=== PATIENT | male | born 1950 | race Caucasian/White ===

== ENCOUNTER 2019-03-11 08:11 | Day surgery (SDC) | payer MEDICARE, OTHER ==
[~2019-03-11 08:11] MED LIST: Lactated Ringers 1,000 ML IV SCH; Lidocaine 1%/Sod Bicarbonate in NS 8.4% 1 ML Syringe IDERM PRN; Sodium Chloride 0.9% 10 ML Syringe FLUSH PRN
[2019-03-11] MEDS ORDERED: Propofol 200 MG/20 ML SDV ONE ×2 (08:42→09:13)
--- NOTE | 2019-03-11 09:02 | PCM.PREANE ---
Preanesthetic Assessment - Anesthesia/Transfusion/Family Hx Anesthesia History: Prior Anesthesia Reaction Family History of Anesthesia Reaction: No Transfusion History: No Prior Transfusion(s) Intubation History: History of Difficulty Intubation - Review of Systems General: No Symptoms Pulmonary: No Symptoms Cardiovascular: No Symptoms Gastrointestinal: No Symptoms Neurological: No Symptoms Other: Reports: None - Physical Assessment NPO Status Date: 03/11/19 NPO Status Time: 04:00 O2 Sat by Pulse Oximetry: 98 Respiratory Rate: 16 Vital Signs: Last Vital Signs Temp 36.4 C 03/11/19 08:25 Pulse 58 L 03/11/19 08:25 Resp 16 03/11/19 08:25 BP 174/79 H 03/11/19 08:25 Pulse Ox 98 03/11/19 08:25 Height: 1.78 m Weight: 119.295 kg ASA Class: 3 Mental Status: Alert & Oriented x3 Airway Class: Mallampati = 3 Dentition: Reports: Normal Dentition Lungs: Clear to Auscultation Cardiovascular: Regular Rate, Regular Rhythm - Allergies Allergies/Adverse Reactions: Allergies Allergy/AdvReac Type Severity Reaction Status Date / Time No Known Allergies Allergy Verified 03/10/19 12:50 - Acknowledgements Pt an Appropriate Candidate for the Planned Anesthesia: Yes Alternatives and Risks of Anesthesia Discussed w Pt/Guardian: Yes Pt/Guardian Understands and Agrees with Anesthesia Plan: Yes PreAnesthesia Questionnaire HEENT History: Reports: Impaired Vision Cardiovascular History: Reports: High Cholesterol, Hypertension Respiratory History: Reports: None Gastrointestinal History: Reports: None Genitourinary History: Reports: Prostate Disorder 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 Musculoskeletal History: Reports: Gout Psychiatric History: Reports: None Endocrine/Metabolic History: Reports: None Hematologic History: Reports: None Immunologic History: Reports: None Oncologic (Cancer) History: Reports: None Dermatologic History: Reports: None - Past Surgical History Head Surgeries/Procedures: Reports: None Cardiovascular Surgical History: Reports: None Respiratory Surgical History: Reports: None GI Surgical History: Reports: None Female Surgical History: Reports: None Male Surgical History: Reports: None Endocrine Surgical History: Reports: None Neurological Surgical History: Reports: C-Spine Musculoskeletal Surgical History: Reports: None Oncologic Surgical History: Reports: None - SUBSTANCE USE Smoking Status *Q: Never Smoker Recreational Drug Use History: No - HOME MEDS Home Medications: Home Meds Glucosamine [Glucosamine Sulfate] 500 mg PO DAILY 05/21/19 [History] Lisinopril/Hydrochlorothiazide [Lisinopril-Hctz 10-12.5 mg Tab] 1 tab PO DAILY 03/10/19 [History] Niacin 500 mg PO DAILY 03/10/19 [History] Oxybutynin Chloride [Ditropan Xl] 10 mg PO DAILY 03/10/19 [History] Tamsulosin HCl 0.4 mg PO DAILY 03/10/19 [History] - CURRENT (IN HOUSE) MEDS Current Meds: Current Medications Lactated Ringer's (Ringers, Lactated) 1,000 mls @ 125 mls/hr IV ASDIRECTED DUNIA Stop: 03/11/19 23:00 Last Admin: 03/11/19 08:35 Dose: 125 mls/hr Lidocaine/Sodium Bicarbonate (Buffered Lidocaine 1% In Ns 8.4%) 0.25 ml IDERM ONETIME PRN PRN Reason: Prior to IV Start Stop: 03/11/19 18:00 Last Admin: 03/11/19 08:34 Dose: 0.25 ml Sodium Chloride (Saline Flush) 10 ml FLUSH ASDIRECTED PRN PRN Reason: Keep Vein Open Stop: 03/11/19 18:00 Discontinued Medications Propofol (Diprivan 20 Ml) Confirm Administered Dose 200 mg .ROUTE .STK-MED ONE Stop: 03/11/19 08:43
--- NOTE | 2019-03-11 09:29 | PCM48HPAN ---
Post Anesthesia Note - EVALUATION WITHIN 48HRS OF ANESTHETIC Vital Signs in Normal Range: Yes Patient Participated in Evaluation: Yes Respiratory Function Stable: Yes Airway Patent: Yes Cardiovascular Function Stable: Yes Hydration Status Stable: Yes Pain Control Satisfactory: Yes Nausea and Vomiting Control Satisfactory: Yes Mental Status Recovered: Yes Resp Rate: 16
--- NOTE | 2019-03-11 09:29 | PCM.POSTAN ---
POST ANESTHESIA ASSESSMENT - MENTAL STATUS Mental Status: Alert - RESPIRATORY Respiratory Status: Respiratory Rate WNL, Airway Patent, O2 Saturation Stable - CARDIOVASCULAR CV Status: Pulse Rate WNL, Blood Pressure Stable - GASTROINTESTINAL GI Status: No Symptoms - POST OP HYDRATION Hydration Status: Adequate & Stable
--- NOTE | 2019-03-11 14:42 | OR ---
DATE OF OPERATION: 03/11/2019 SURGEON: Ed Jimenez MD PREOPERATIVE DIAGNOSIS: Colorectal cancer screening. POSTOPERATIVE DIAGNOSIS: 1. Colorectal cancer screening. 2. Colon polyps. OPERATION PERFORMED: Screening colonoscopy and polypectomy x2. FINDINGS: He had an excellent bowel prep. I identified 2 what appeared to be hyperplastic polyps in the descending colon. These were removed in their entirety. The remainder of his exam was completely unremarkable. I found no diverticulosis. ANESTHESIA: Monitored anesthesia care. ESTIMATED BLOOD LOSS: Minimal. PATHOLOGY: Descending colon polyps x2. DISPOSITION: Stable at the end of the procedure. INDICATION: The patient is a 68-year-old male, who has never had a colonoscopy. He was referred for screening colonoscopy. He has no family history of colon cancer, but his mother did have some polyps removed. He was fully informed of the major risks, benefits, and alternatives of the procedure. He gave informed consent both on the day of the procedure and on the day of my office. DESCRIPTION OF PROCEDURE: The patient was placed in the left lateral decubitus position. He was given monitored anesthesia. Digital rectal exam was performed. This was unremarkable. I introduced the colonoscope with copious lubrication into the rectum. I advanced the scope with gentle forward pressure keeping the lumen in view at all times. I encountered the cecum. The cecum was documented photographically. I slowly investigated the mucosa of the colon in an exam lasting 8 minutes. A thorough careful examination of the mucosa in its entirety identified 2 polyps in the descending colon. Both of these were removed in their entirety with the biopsy forceps with essentially no bleeding. At the end of the procedure, the scope was withdrawn. He was awakened from anesthesia and moved to the recovery in stable condition. PLAN: He will need a colonoscopy in 10 years; however, if these polyps result adenomatous in character, 5-year followup will be warranted. My office will notify him. MMODAL /[id number]
== END 2019-03-11 10:10 | disposition home or self-care (01) ==
LOC: JD.SDS 08:11
PROVIDERS: ATTEND Surgery
DX: Z12.11 Encounter for screening for malignant neoplasm of colon (principal); D12.4 Benign neoplasm of descending colon; I10 Essential (primary) hypertension; N42.9 Disorder of prostate, unspecified; Z83.71 Family history of colonic polyps; Z79.899 Other long term (current) drug therapy
CPT/HCPCS: 00812; J2704; J7120

== ENCOUNTER 2021-08-28 08:33 | Emergency (ER) | payer MEDICARE, OTHER ==
[2021-08-28] MEDS ORDERED: Sodium Chloride 0.9% 10 ML Syringe FLUSH PRN ×2 (09:13→13:33)
[2021-08-28] MEDS: Diltiazem 50 MG/10 ML SDV IVPUSH ONE ×2 (09:23→09:57)
--- NOTE | 2021-08-28 09:26 | EDM.PDOC ---
ED HPI GENERAL MEDICAL PROBLEM - General Chief Complaint: Cardiovascular Problem Stated Complaint: SOB BLOOD PRESSURE Time Seen by Provider: 08/28/21 08:59 Source of Information: Reports: Patient History Limitations: Reports: No Limitations - History of Present Illness INITIAL COMMENTS - FREE TEXT/NARRATIVE: 71-year-old male presents the emergency department today with complaints of increased shortness of breath and heart palpitations. Patient states he initially noticed this 7 days ago and has progressively gotten worse. He states that shortness of breath became more significant 3 days ago. He denies any history of breathing issues or atrial fibrillation. He denies any chest pain or discomfort. He states he does have a history of hypertension and does take oral agents for diabetes. He states he did have all 3 Covid vaccines with his last booster being given approximately 8 days ago. - Related Data Allergies Allergy/AdvReac Type Severity Reaction Status Date / Time No Known Allergies Allergy Verified 08/28/21 09:04 Home Meds: Home Meds Lisinopril/Hydrochlorothiazide [Lisinopril-Hctz 10-12.5 mg Tab] 10 - 12.5 mg PO DAILY 03/10/19 [History] Niacin 500 mg PO DAILY 03/10/19 [History] Tamsulosin HCl 0.4 mg PO DAILY 03/10/19 [History] metFORMIN HCl [Metformin HCl] 1,000 mg PO BID 08/28/21 [History] Past Medical History HEENT History: Reports: Impaired Vision Other HEENT History: wears eyeglasses. 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 Social & Family History - Tobacco Use Tobacco Use Status *Q: Never Tobacco User Second Hand Smoke Exposure: No - Caffeine Use Caffeine Use: Reports: Coffee - Recreational Drug Use Recreational Drug Use: No ED ROS GENERAL - Review of Systems Review Of Systems: Comprehensive ROS is negative, except as noted in HPI. ED EXAM, GENERAL - Physical Exam Exam: See Below Exam Limited By: No Limitations General Appearance: Alert, WD/WN, Mild Distress Ears: Normal External Exam, Hearing Grossly Normal Nose: Normal Inspection Throat/Mouth: Normal Inspection, Normal Lips, Normal Voice, No Airway Compromise Head: Atraumatic Neck: Normal Inspection, Supple Respiratory/Chest: No Respiratory Distress, Lungs Clear, Normal Breath Sounds, No Accessory Muscle Use, Chest Non-Tender Cardiovascular: Normal Peripheral Pulses, Regular Rate, Rhythm, No Edema, No Murmur Peripheral Pulses: 2+: Radial (L), Radial (R) GI/Abdominal: Normal Bowel Sounds, Soft, Non-Tender, No Distention (Male) Exam: Deferred Rectal (Males) Exam: Deferred Back Exam: Normal Inspection Extremities: Normal Inspection, Normal Range of Motion, Non-Tender, Normal Capillary Refill, Pedal Edema (Trace to bilateral lower extremities) Neurological: Alert, Oriented, Normal Cognition Psychiatric: Normal Affect, Normal Mood Skin Exam: Warm, Dry, Intact, Normal Color, No Rash Lymphatic: No Adenopathy #1 Interpretation EKG Date: 08/28/21 Time: 08:53 Rhythm: A-Fib Rate (Beats/Min): 162 Cylinder: Normal P-Wave: Absent QRS: Normal ST-T: Normal QT: Normal Comparison: NA - No Prior EKG EKG Interpretation Comments: Per Dr. Vivas interpretation; atrial fib with rapid ventricular rate at 162 bpm; abnormal R wave progression, late transition; inferior infarct, old Course - Vital Signs Text/Narrative:: As stated above, patient presents with shortness of breath and heart palpitations. Physical exam reveals that the patient's heart rate is in the 140s A. fib with RVR. Heart rate is regular. I do not appreciate any murmur. Lung sounds are clear. He does have a trace of pedal edema to his bilateral lower extremities. He denies noticing any increasing swelling in his abdomen or lower extremities. He denies having any chest pain or discomfort. I have ordered an EKG, lab studies to include a CBC, CMP, magnesium, C-reactive protein, troponin, proBNP and a TSH level. We will also obtain a portable chest x-ray. Patient will receive Cardizem 10 mg to be repeated 10 minutes later x1. Then likely start the patient on a Cardizem drip. Last Recorded V/S: Last Vital Signs Temp 99.2 F 08/28/21 15:31 Pulse 150 H 08/28/21 15:31 Resp 32 H 08/28/21 15:31 BP 172/134 H 08/28/21 15:31 Pulse Ox 95 08/28/21 15:31 - Orders/Labs/Meds Orders: Active Orders 24 hr Category Date Time Status Saline Lock Insert [OM.PC] Stat Oth 08/28/21 09:13 Ordered Labs: Laboratory Tests 08/28/21 08/28/21 08/28/21 Range/Units 09:00 09:35 09:35 WBC 7.94 (4.23-9.07) K/mm3 RBC 5.58 (4.63-6.08) M/mm3 Hgb 16.8 (13.7-17.5) gm/dl Hct 49.8 (40.1-51.0) % MCV 89.2 (79.0-92.2) fl MCH 30.1 (25.7-32.2) pg MCHC 33.7 (32.2-35.5) g/dl RDW Std Deviation 44.8 H (35.1-43.9) fL Plt Count 234 (163-337) K/mm3 MPV 10.3 (9.4-12.3) fl Neut % (Auto) 70.2 H (34.0-67.9) % Lymph % (Auto) 19.5 L (21.8-53.1) % Kerr % (Auto) 8.9 (5.3-12.2) % Eos % (Auto) 0.5 L (0.8-7.0) Baso % (Auto) 0.5 (0.1-1.2) % Neut # (Auto) 5.57 H (1.78-5.38) K/mm3 Lymph # (Auto) 1.55 (1.32-3.57) K/mm3 Kerr # (Auto) 0.71 (0.30-0.82) K/mm3 Eos # (Auto) 0.04 (0.04-0.54) K/mm3 Baso # (Auto) 0.04 (0.01-0.08) K/mm3 D-Dimer, Quantitative (0.19-0.50) mg/L Sodium 140 (136-145) mEq/L Potassium 3.8 (3.5-5.1) mEq/L Chloride 103 (98-107) mEq/L Carbon Dioxide 26 (21-32) mEq/L Anion Gap 14.8 (5-15) BUN 18 (7-18) mg/dL Creatinine 1.1 (0.7-1.3) mg/dL Est Cr Clr Drug Dosing 64.52 mL/min Estimated GFR (MDRD) > 60 (>60) mL/min BUN/Creatinine Ratio 16.4 (14-18) Glucose 158 H (70-99) mg/dL Calcium 9.1 (8.5-10.1) mg/dL Magnesium 1.7 L (1.8-2.4) mg/dL Total Bilirubin 1.0 (0.2-1.0) mg/dL AST 33 (15-37) U/L ALT 47 (16-63) U/L Alkaline Phosphatase 75 (46-116) U/L Troponin I < 0.017 (0.00-0.056) ng/mL C-Reactive Protein 0.5 (<1.0) mg/dL NT-Pro-B Natriuret Pep 2799 H (0-125) pg/mL Total Protein 7.6 (6.4-8.2) g/dl Albumin 3.7 (3.4-5.0) g/dl Globulin 3.9 gm/dL Albumin/Globulin Ratio 1.0 (1-2) TSH 3rd Generation 1.449 (0.358-3.74) uIU/mL Urine Color (Yellow) Urine Appearance (Clear) Urine pH (5.0-8.0) Ur Specific Gaastra (1.005-1.030) Urine Protein (Negative) Urine Glucose (UA) (Negative) Urine Ketones (Negative) Urine Occult Blood (Negative) Urine Nitrite (Negative) Urine Bilirubin (Negative) Urine Urobilinogen (0.2-1.0) Ur Leukocyte Esterase (Negative) Urine RBC (0-5) /hpf Urine WBC (0-5) /hpf Ur Epithelial Cells (0-5) /hpf Urine Bacteria (FEW) /hpf Urine Mucus (FEW) /hpf SARS-CoV-2 RNA (JEISON) (NEGATIVE) 08/28/21 08/28/21 08/28/21 Range/Units 11:15 11:30 13:48 WBC (4.23-9.07) K/mm3 RBC (4.63-6.08) M/mm3 Hgb (13.7-17.5) gm/dl Hct (40.1-51.0) % MCV (79.0-92.2) fl MCH (25.7-32.2) pg MCHC (32.2-35.5) g/dl RDW Std Deviation (35.1-43.9) fL Plt Count (163-337) K/mm3 MPV (9.4-12.3) fl Neut % (Auto) (34.0-67.9) % Lymph % (Auto) (21.8-53.1) % Kerr % (Auto) (5.3-12.2) % Eos % (Auto) (0.8-7.0) Baso % (Auto) (0.1-1.2) % Neut # (Auto) (1.78-5.38) K/mm3 Lymph # (Auto) (1.32-3.57) K/mm3 Kerr # (Auto) (0.30-0.82) K/mm3 Eos # (Auto) (0.04-0.54) K/mm3 Baso # (Auto) (0.01-0.08) K/mm3 D-Dimer, Quantitative 0.49 (0.19-0.50) mg/L Sodium (136-145) mEq/L Potassium (3.5-5.1) mEq/L Chloride (98-107) mEq/L Carbon Dioxide (21-32) mEq/L Anion Gap (5-15) BUN (7-18) mg/dL Creatinine (0.7-1.3) mg/dL Est Cr Clr Drug Dosing mL/min Estimated GFR (MDRD) (>60) mL/min BUN/Creatinine Ratio (14-18) Glucose (70-99) mg/dL Calcium (8.5-10.1) mg/dL Magnesium (1.8-2.4) mg/dL Total Bilirubin (0.2-1.0) mg/dL AST (15-37) U/L ALT (16-63) U/L Alkaline Phosphatase (46-116) U/L Troponin I (0.00-0.056) ng/mL C-Reactive Protein (<1.0) mg/dL NT-Pro-B Natriuret Pep (0-125) pg/mL Total Protein (6.4-8.2) g/dl Albumin (3.4-5.0) g/dl Globulin gm/dL Albumin/Globulin Ratio (1-2) TSH 3rd Generation (0.358-3.74) uIU/mL Urine Color Yellow (Yellow) Urine Appearance Clear (Clear) Urine pH 6.0 (5.0-8.0) Ur Specific Gaastra 1.025 (1.005-1.030) Urine Protein 2+ H (Negative) Urine Glucose (UA) Negative (Negative) Urine Ketones Negative (Negative) Urine Occult Blood Trace-intact H (Negative) Urine Nitrite Negative (Negative) Urine Bilirubin Negative (Negative) Urine Urobilinogen 1.0 (0.2-1.0) Ur Leukocyte Esterase Negative (Negative) Urine RBC 0-5 (0-5) /hpf Urine WBC 0-5 (0-5) /hpf Ur Epithelial Cells 0-5 (0-5) /hpf Urine Bacteria Not seen (FEW) /hpf Urine Mucus Not seen (FEW) /hpf SARS-CoV-2 RNA (JEISON) Negative (NEGATIVE) 08/28/21 Range/Units 13:48 WBC (4.23-9.07) K/mm3 RBC (4.63-6.08) M/mm3 Hgb (13.7-17.5) gm/dl Hct (40.1-51.0) % MCV (79.0-92.2) fl MCH (25.7-32.2) pg MCHC (32.2-35.5) g/dl RDW Std Deviation (35.1-43.9) fL Plt Count (163-337) K/mm3 MPV (9.4-12.3) fl Neut % (Auto) (34.0-67.9) % Lymph % (Auto) (21.8-53.1) % Kerr % (Auto) (5.3-12.2) % Eos % (Auto) (0.8-7.0) Baso % (Auto) (0.1-1.2) % Neut # (Auto) (1.78-5.38) K/mm3 Lymph # (Auto) (1.32-3.57) K/mm3 Kerr # (Auto) (0.30-0.82) K/mm3 Eos # (Auto) (0.04-0.54) K/mm3 Baso # (Auto) (0.01-0.08) K/mm3 D-Dimer, Quantitative (0.19-0.50) mg/L Sodium (136-145) mEq/L Potassium (3.5-5.1) mEq/L Chloride (98-107) mEq/L Carbon Dioxide (21-32) mEq/L Anion Gap (5-15) BUN (7-18) mg/dL Creatinine (0.7-1.3) mg/dL Est Cr Clr Drug Dosing mL/min Estimated GFR (MDRD) (>60) mL/min BUN/Creatinine Ratio (14-18) Glucose (70-99) mg/dL Calcium (8.5-10.1) mg/dL Magnesium (1.8-2.4) mg/dL Total Bilirubin (0.2-1.0) mg/dL AST (15-37) U/L ALT (16-63) U/L Alkaline Phosphatase (46-116) U/L Troponin I < 0.017 (0.00-0.056) ng/mL C-Reactive Protein (<1.0) mg/dL NT-Pro-B Natriuret Pep (0-125) pg/mL Total Protein (6.4-8.2) g/dl Albumin (3.4-5.0) g/dl Globulin gm/dL Albumin/Globulin Ratio (1-2) TSH 3rd Generation (0.358-3.74) uIU/mL Urine Color (Yellow) Urine Appearance (Clear) Urine pH (5.0-8.0) Ur Specific Gaastra (1.005-1.030) Urine Protein (Negative) Urine Glucose (UA) (Negative) Urine Ketones (Negative) Urine Occult Blood (Negative) Urine Nitrite (Negative) Urine Bilirubin (Negative) Urine Urobilinogen (0.2-1.0) Ur Leukocyte Esterase (Negative) Urine RBC (0-5) /hpf Urine WBC (0-5) /hpf Ur Epithelial Cells (0-5) /hpf Urine Bacteria (FEW) /hpf Urine Mucus (FEW) /hpf SARS-CoV-2 RNA (JEISON) (NEGATIVE) Meds: Medications Discontinued Medications Generic Name Dose Route Start Last Admin Trade Name Frebeba PRN Reason Stop Dose Admin Diltiazem HCl 20 mg 08/28/21 09:13 08/28/21 09:57 Diltiazem 50 Mg/10 Ml Sdv IVPUSH 08/28/21 09:14 10 mg ONETIME ONE Administration Enoxaparin Sodium 100 mg 08/28/21 15:04 08/28/21 15:10 Enoxaparin 100 Mg/1 Ml Syringe SUBCUT 08/28/21 15:05 100 mg ONETIME ONE Administration Furosemide 40 mg 08/28/21 10:22 08/28/21 10:50 Furosemide 40 Mg/4 Ml Vial IVPUSH 08/28/21 10:23 40 mg NOW ONE Administration Diltiazem HCl 100 mg/ Sodium 100 mls @ 5 mls/hr 08/28/21 09:45 08/28/21 15:25 Chloride IV 15 mg/hr TITRATE DUNIA 15 mls/hr Titration Protocol 5 MG/HR Sodium Chloride 100 mls @ 75 mls/hr 08/28/21 13:45 08/28/21 14:16 Normal Saline IV 75 mls/hr ASDIRECTED DUNIA Administration Magnesium Sulfate 2 gm/ Premix 50 mls @ 25 mls/hr 08/28/21 14:09 08/28/21 15:04 IV 08/28/21 16:08 25 mls/hr ONETIME ONE Administration Iopamidol 100 ml 08/28/21 13:33 08/28/21 14:16 Iopamidol 755 Mg/Ml 100 Ml Bottle IVPUSH 08/28/21 13:34 100 ml ONETIME ONE Administration Sodium Chloride 10 ml 08/28/21 09:13 08/28/21 09:25 Sodium Chloride 0.9% 10 Ml Syringe FLUSH 10 ml ASDIRECTED PRN Administration Keep Vein Open Sodium Chloride 10 ml 08/28/21 13:33 08/28/21 14:16 Sodium Chloride 0.9% 10 Ml Syringe FLUSH 10 ml ONETIME PRN Administration IV FLUSH - Re-Assessments/Exams Free Text/Narrative Re-Assessment/Exam: 08/28/21 10:05 Radiologist impression portable view of the chest: 1. Heart size is enlarged. Prior cervical spine and upper thoracic spine surgery is noted. Small right pleural effusion with possible left-sided pleural effusion. Pulmonary vessels are mildly congested. Impression: 1. Findings as noted above which are suspicious for CHF. 08/28/21 10:25 Hematology reveals a WBC of 7.94, hemoglobin 16.8, hematocrit 49.8, platelet count 234 Chemistry reveals a sodium of 140, potassium 3.8, carbon dioxide 26, anion gap 14.8, BUN 18, creatinine 1.1, GFR greater than 60, glucose 158, magnesium 1.7, troponin less than 0.017, proBNP 2799, TSH 1.449 Patient does have congestive heart failure likely associated with new onset atrial fibrillation. I have ordered for the patient to receive Lasix 40 mg IV push as well as for nursing staff to start a Cardizem drip on the patient. Patient's heart rate after 20 mg IV Cardizem is upper 90s to one teens. Rhythm continues to be atrial fibrillation. 08/28/21 12:58 She is Covid test is negative. I do feel this patient needs to be admitted to the hospital. We have no beds available here at this hospital. I did like him to call [facility] in [place] in [place] and they have no beds available. I called [facility] in [place] they are on diversion. I called [facility] and received a voice message waiting to hear back from them. 08/28/21 13:32 Discussed the patient's case with Dr. Wan at [facility] in [place]. She is requesting that I repeat the patient's troponin level and get a CT a of the lungs to rule out PE. Once I have these results she requests that I call her back and she will decide whether or not she will take the patient. 08/28/21 14:39 D-dimer 0.49, repeat troponin less than 0.017. 08/28/21 14:[address] of the chest: 1. No findings of pulmonary embolism. 2. Findings as described above are suspicious for CHF. 3. Pericardial effusion is seen. 4. Gallstones are present. 08/28/21 14:46 Repeat troponin and CTA of the lungs results were called to at [facility] in [place]. She has agreed to accept care of the patient in transfer. 08/28/21 15:05 Discussed the case with Dr. Vivas and whether or not I should give the patient a dose of lovenox 1mg/kg as it will likely be at least three hours before the paient gets to [place]. He agrees the patient receive a dose. Departure - Departure Time of Disposition: 15:31 Disposition: DC/Tfer to Critical Access [facility] Reason for Transfer *Q: Other Condition: Good Clinical Impression: Atrial fibrillation with RVR CHF (congestive heart failure) Qualifiers: Heart failure type: unspecified Heart failure chronicity: unspecified Qualified Code(s): I50.9 - Heart failure, unspecified Referrals: Carlos Brown PA-C [Primary Care Provider] - Forms: ED Department Discharge Sepsis Event Note (ED) - Evaluation Sepsis Screening Result: No Definite Risk - My Orders Last 24 Hours: My Active Orders 08/28/21 09:13 Saline Lock Insert [OM.PC] Stat - Assessment/Plan Last 24 Hours: My Active Orders 08/28/21 09:13 Saline Lock Insert [OM.PC] Stat
[2021-08-28] MEDS ORDERED: Diltiazem 100 MG in Sodium Chloride 0.9% 100 ML IV SCH (09:45)
--- NOTE | 2021-08-28 09:58 | CR ---
Chest: Portable view of the chest was obtained. Comparison: No prior chest imaging is available. Heart size is enlarged. Prior cervical spine and upper thoracic spine surgery is noted. Small right-sided pleural effusion with possible left-sided pleural effusion. Pulmonary vessels are mildly congested. Impression: 1. Findings as noted above which are suspicious for CHF. Diagnostic code #3
[2021-08-28] MEDS ORDERED: Furosemide 40 MG/4 ML VIAL IVPUSH ONE (10:22)
[2021-08-28] MEDS ORDERED: Iopamidol 755 Mg/ML 100 ML Bottle IVPUSH ONE (13:33)
[2021-08-28] MEDS ORDERED: Sodium Chloride 0.9% 100 ML IV SCH (13:45)
[2021-08-28] MEDS ORDERED: Magnesium Sulfate/Water 2 GM in Premix Bag 1 BAG IV ONE (14:09)
--- NOTE | 2021-08-28 14:40 | CT ---
CT chest Technique: Multiple axial sections through the chest were obtained. Intravenous contrast was utilized. Study has been performed as a pulmonary angiogram protocol. Comparison: No prior chest CT is available, prior chest x-ray performed earlier on the same day (9:32 AM). Findings: Pulmonary arteries are well-opacified. No filling defects are seen to indicate pulmonary embolism. Bilateral pleural effusions are seen which is larger in size on the right side. Pleural effusions are moderate in size. Heart is enlarged. Pericardial effusion is noted. Gallstones are noted within the gallbladder. Other visualized abdominal structures show nothing acute. Slight haziness is seen within the peribronchial markings most likely due to pulmonary vascular congestion. Minimal compressive atelectasis is seen adjacent to the pleural effusions. Bone window settings were reviewed which show scattered degenerative endplate spurring within the spine. Anterior plate and screws are seen within the distal cervical spine and upper thoracic spine. Impression: 1. No findings of pulmonary embolism. 2. Findings as described above are suspicious for CHF. 3. Pericardial effusion is seen. 4. Gallstones are present. Diagnostic code #3
[2021-08-28] MEDS ORDERED: Enoxaparin 100 MG/1 ML Syringe SUBCUT ONE (15:04)
== END 2021-08-28 15:31 | disposition critical access hospital (66) ==
LOC: JD.ED 08:33
DX: I48.91 Unspecified atrial fibrillation (principal); I11.0 Hypertensive heart disease with heart failure; I50.9 Heart failure, unspecified; E11.9 Type 2 diabetes mellitus without complications; Z79.84 Long term (current) use of oral hypoglycemic drugs; Z79.899 Other long term (current) drug therapy; Z20.822 Contact with and (suspected) exposure to COVID-19
CPT/HCPCS: 36415; 71045; 71275; 80053; 81001; 83735; 83880; 84443; 84484; 85025; 85379; 86140; 93005; 96365; 96366; 96367; 96372; 96375; 96376; 99285; J1650; J1940; J3475; J3490; Q9967; U0002; 93010

== ENCOUNTER 2022-08-09 10:19 | Emergency (ER) | payer MEDICARE, BC ==
[2022-08-09] MEDS ORDERED: Acetaminophen/oxyCODONE 325-5 MG Tab PO ONE (11:21)
[2022-08-09] MEDS ORDERED: Ketorolac 30 MG/ML SDV IM ONE (11:26)
== END 2022-08-09 13:55 | disposition home or self-care (01) ==
LOC: JD.ED 10:19
DX: S40.011A Contusion of right shoulder, initial encounter (principal); S50.01XA Contusion of right elbow, initial encounter; S70.01XA Contusion of right hip, initial encounter; M54.50 Low back pain, unspecified; R07.89 Other chest pain; I10 Essential (primary) hypertension; E11.9 Type 2 diabetes mellitus without complications; E78.00 Pure hypercholesterolemia, unspecified; Z79.899 Other long term (current) drug therapy; Z79.84 Long term (current) use of oral hypoglycemic drugs; W10.9XXA Fall (on) (from) unspecified stairs and steps, initial encounter
CPT/HCPCS: 36415; 71101; 72100; 73030; 73080; 73502; 85025; 99283; A9270

== ENCOUNTER 2022-08-13 17:48 | Emergency (ER) | payer MEDICARE, BC ==
[2022-08-13] MEDS ORDERED: Acetaminophen/oxyCODONE 325-5 MG Tab PO ONE (19:26)
== END 2022-08-13 20:20 | disposition home or self-care (01) ==
LOC: JD.ED 17:48
DX: S40.011A Contusion of right shoulder, initial encounter (principal); E11.9 Type 2 diabetes mellitus without complications; Z79.899 Other long term (current) drug therapy; Z79.84 Long term (current) use of oral hypoglycemic drugs; Z79.01 Long term (current) use of anticoagulants; W11.XXXA Fall on and from ladder, initial encounter
CPT/HCPCS: 99283; A9270

== ENCOUNTER 2024-08-11 06:33 | Day surgery (SDC) | payer MEDICARE ==
[~2024-08-11 06:33] MED LIST changes: -Lactated Ringers 1,000 ML IV SCH; -Lidocaine 1%/Sod Bicarbonate in NS 8.4% 1 ML Syringe IDERM PRN; +Sodium Chloride 0.9% 10 ML Syringe FLUSH SCH
[2024-08-11] MEDS: Lactated Ringers 1,000 ML IV SCH (06:55)
[2024-08-11] MEDS ORDERED: Lidocaine 1% PF 2 ML SDV ONE ×2 (07:14)
[2024-08-11] MEDS ORDERED: Propofol 200 MG/20 ML SDV ONE (07:14)
[2024-08-11] MEDS ORDERED: Lidocaine 1% 4 ML ONE (07:14)
== END 2024-08-11 08:45 | disposition home or self-care (01) ==
LOC: JD.SDS 06:33
PROVIDERS: ATTEND Surgery
DX: Z12.11 Encounter for screening for malignant neoplasm of colon (principal); I10 Essential (primary) hypertension; E78.00 Pure hypercholesterolemia, unspecified; I48.91 Unspecified atrial fibrillation; E11.9 Type 2 diabetes mellitus without complications; Z79.01 Long term (current) use of anticoagulants; Z79.85 Long-term (current) use of injectable non-insulin antidiabetic drugs; Z79.899 Other long term (current) drug therapy
CPT/HCPCS: 45378; J2704; J7120; J3490